=== PATIENT | female | born 1975 | race Caucasian/White ===

== ENCOUNTER 2021-12-30 12:35 | Inpatient (IN) ==
[2021-12-30 13:45] LABS: Mean Corpuscular Volume 89.9 fL (83.0-100.0)
[2021-12-30 13:47] LABS: Hematocrit 33.9 % (35.3-44.9); Hemoglobin 11.7 g/dL (11.5-15.4); Immature Platelets 9.3 % (1.1-6.1); Mean Corpuscular HGB Conc 34.5 g/dL (31.6-35.5); Mean Platelet Volume 11.6 fL (9.4-12.4); Red Blood Count 3.77 M/mcL (3.82-4.97); White Blood Count 11.2 K/mcL (4.3-11.1)
[2021-12-30 14:08] LABS: Calcium 6.8 mg/dL (8.6-10.3); Potassium 3.2 mEq/L (3.5-5.1)
[2021-12-30 14:53] LABS: Platelet Count 59 K/mcL (140-400)
[2021-12-30 15:07] LABS: Eosinophils # 0.1 K/mcL (0.0-0.6); Lymphocytes # 0.9 K/mcL (0.6-4.6); Monocytes # 0.1 K/mcL (0.0-1.3); Platelet Estimate Decreased (Normal)
[2021-12-30 15:30] LABS: Bilirubin,Urine Negative (Negative); Blood,Urine Large (Negative); Clarity,Urine Clear (Clear); Color,Urine Yellow (Yellow); Glucose,Urine (UA) Normal (Normal); Ketones,Urine Negative (Negative); Leukocyte Esterase,Urine Small (Negative); Nitrite,Urine Negative (Negative); Protein,Urine 100 mg/dL (Neg-Trace); Urobilinogen,Urine Normal (Normal)
[2021-12-30 15:31] LABS: Bacteria,Urine Few per hpf (None-Few); RBC,Urine 0-3 per hpf (0-3); Squamous Epithelial Cell,Urine Few per hpf (None-Few); WBC,Urine 30-50 per hpf (0-3)
[2021-12-30] MEDS ORDERED: Piperacillin/Tazobactam 3.375 GM in 0.9 % Sodium Chloride Mini Bag 100 ML IVPB ONE (15:43)
[2021-12-30] MEDS ORDERED: Vancomycin 1,250 MG/262.5 ML IV.SOLN IVPB ONE (15:43)
[2021-12-30] MEDS: 0.9 % Sodium Chloride 1,000 ML IVC SCH ×2 (16:15→17:19)
[2021-12-30] MEDS ORDERED: Ondansetron 4 MG/2 ML VIAL IVP ONE (16:57)
[2021-12-30] MEDS ORDERED: *HR* HYDROmorphone (PF) 1 MG/ML SYRINGE IVP ONE (16:57)
[2021-12-30] MEDS ORDERED: *HR* HYDROmorphone (PF) 1 MG/ML SYRINGE IM ONE (16:57)
[2021-12-30 17:02] LABS: Hematocrit 33.3 % (35.3-44.9); Hemoglobin 11.3 g/dL (11.5-15.4); Immature Platelets 9.7 % (1.1-6.1); Mean Corpuscular HGB Conc 33.9 g/dL (31.6-35.5); Mean Corpuscular Volume 91.2 fL (83.0-100.0); Red Blood Count 3.65 M/mcL (3.82-4.97); White Blood Count 11.6 K/mcL (4.3-11.1)
[2021-12-30 17:11] LABS: Platelet Count 60 K/mcL (140-400)
[2021-12-30 17:22] LABS: Albumin 3.2 g/dL (3.5-5.7); Albumin/Globulin Ratio 1.1 (1.1-2.2); Bilirubin,Direct 0.1 mg/dL (0.0-0.2); Bilirubin,Indirect 0.3 mg/dL (0.0-1.0); Bilirubin,Total 0.4 mg/dL (0.3-1.0); Calcium 6.7 mg/dL (8.6-10.3); Magnesium 2.4 mg/dL (1.6-2.6); Phosphorous 3.5 mg/dL (2.7-4.5); Potassium 3.1 mEq/L (3.5-5.1); Total Protein 6.2 g/dL (6.4-8.9); Troponin I 0.05 ng/mL (< 0.04)
[2021-12-30 17:42] LABS: Lymphocytes # 0.2 K/mcL (0.6-4.6); Monocytes # 0.2 K/mcL (0.0-1.3); Neutrophils # 11.1 K/mcL (1.6-8.9)
[2021-12-30 17:43] LABS: Platelet Estimate Decreased (Normal)
[2021-12-30] MEDS ORDERED: Iopamidol - 300 50 ML VIAL ONE (17:52)
[2021-12-30 18:01] LABS: Bacteria,Urine Few per hpf (None-Few); Bilirubin,Urine Negative (Negative); Blood,Urine Large (Negative); Clarity,Urine Clear (Clear); Color,Urine Light-Yellow (Yellow); Glucose,Urine (UA) Normal (Normal); Ketones,Urine Negative (Negative); Leukocyte Esterase,Urine Large (Negative); Mucus,Urine Few per lpf (None-Few); Nitrite,Urine Negative (Negative); PH,Urine 6.5 pH Units (5.0-8.0); Protein,Urine 100 mg/dL (Neg-Trace); Specific Gravity,Urine 1.014 (1.010-1.025); Squamous Epithelial Cell,Urine Few per hpf (None-Few); Urobilinogen,Urine Normal (Normal); WBC,Urine 15-30 per hpf (0-3)
[2021-12-30] MEDS ORDERED: Promethazine 6.25 MG in Water for inj. (sterile) 20 ML IVPB PRN (18:09)
[2021-12-30] MEDS ORDERED: *HR* HYDROmorphone PF 0.5 MG/0.5 ML SYRINGE IVP PRN (18:09)
[2021-12-30] MEDS ORDERED: Ondansetron 4 MG/2 ML VIAL IVP PRN ×3 (18:09→21:00)
[2021-12-30] MEDS ORDERED: *HR* OxyCODONE Immed Rel 5 MG TABLET PO PRN (18:09)
[2021-12-30] MEDS ORDERED: *HR* FentaNYL (PF) 100 MCG/2 ML VIAL ONE (18:13)
[2021-12-30] MEDS ORDERED: Lidocaine -MPF 2% 5 ML VIAL ONE (18:13)
[2021-12-30] MEDS ORDERED: *HR* Propofol 200 MG/20 ML VIAL IVP ONE (18:14)
[2021-12-30] MEDS ORDERED: Naloxone 0.4 MG/ML INJ IVP PRN ×2 (18:16→21:00)
[2021-12-30] MEDS ORDERED: Melatonin 3 MG TABLET PO PRN ×2 (18:16→21:00)
[2021-12-30] MEDS ORDERED: 0.9 % Sodium Chloride 1,000 ML IVC ONE ×2 (18:19→21:00)
[2021-12-30] MEDS ORDERED: D5% in Water 1,000 ML IVC PRN ×2 (18:23→21:00)
[2021-12-30] MEDS ORDERED: *HR* Dextrose 50 % in Water (Syg) 50 ML SYRINGE IVP PRN ×2 (18:23→21:00)
[2021-12-30] MEDS ORDERED: Dextrose Gel 15 GM/37.5 ML TUBE PO PRN ×4 (18:23→21:00)
[2021-12-30] MEDS ORDERED: Insulin LISPRO 300 UNITS/3 ML VIAL SUBQ SCH (18:30)
[2021-12-30] MEDS ORDERED: Albuterol 2.5 MG/3 ML NEBULIZER IH ONE (19:48)
[2021-12-30] MEDS ORDERED: *HR* Labetalol 20 MG/4 ML SYRINGE IVP PRN (20:07)
[2021-12-30] MEDS ORDERED: *HR* Labetalol 20 MG/4 ML SYRINGE IVP ONE (20:10)
[2021-12-30] MEDS ORDERED: Ringers Solution, Lactated 1,000 ML ONE (20:20)
[2021-12-30] MEDS ORDERED: Acetaminophen IV 1,000 MG/100 ML BAG IVPB ONE ×2 (20:40)
[2021-12-30] MEDS ORDERED: Calcium Gluconate 1gm/50mL 1 GM/50 ML BAG IVPB ONE (21:00)
[2021-12-30] MEDS: Piperacillin/Tazobactam 3.375 GM in 0.9 % Sodium Chloride Mini Bag 100 ML IVPB SCH (23:39)
[2021-12-31] MEDS ORDERED: Piperacillin/Tazobactam 3.375 GM in 0.9 % Sodium Chloride Mini Bag 100 ML IVPB SCH
[2021-12-31] MEDS: Acetaminophen/Butalbital/CaffeineTABLET PO PRN ×2 (01:34→15:53)
[2021-12-31 04:34] LABS: Hematocrit 30.6 % (35.3-44.9); Hemoglobin 10.4 g/dL (11.5-15.4); Mean Corpuscular Volume 91.3 fL (83.0-100.0); Red Blood Count 3.35 M/mcL (3.82-4.97)
[2021-12-31 04:36] LABS: Immature Platelets 7.1 % (1.1-6.1); Monocytes # 0.2 K/mcL (0.0-1.3); Red Cell Distribution Width 14.4 % (11.5-14.5); White Blood Count 11.4 K/mcL (4.3-11.1)
[2021-12-31 04:37] LABS: Platelet Count 56 K/mcL (140-400)
[2021-12-31 04:51] LABS: Calcium 6.2 mg/dL (8.6-10.3); Magnesium 2.1 mg/dL (1.6-2.6); Phosphorous 3.2 mg/dL (2.7-4.5); Potassium 3.6 mEq/L (3.5-5.1)
[2021-12-31 04:52] LABS: INR 1.2; Prothrombin Time 13.5 Seconds (9.4-12.1)
[2021-12-31 05:15] LABS: Neutrophils # 11.2 K/mcL (1.6-8.9); Platelet Estimate Decreased (Normal)
[2021-12-31] MEDS: Piperacillin/Tazobactam 3.375 GM in 0.9 % Sodium Chloride Mini Bag 100 ML IVPB SCH ×2 (07:37→15:54)
[2021-12-31] MEDS: Insulin LISPRO 300 UNITS/3 ML VIAL SUBQ SCH ×3 (08:56→17:22)
[2021-12-31 09:42] LABS: Estimated Average Glucose 166 mg/dl; Hemoglobin A1C 7.4 %
[2021-12-31] MEDS: Calcium Gluconate 1gm/50mL 1 GM/50 ML BAG IVPB SCH ×2 (12:31→12:37)
[2021-12-31] MEDS: Calcium Gluconate 1gm/50mL 1 GM/50 ML BAG IVPB ONE (13:35)
[2021-12-31] MEDS: 0.9 % Sodium Chloride 1,000 ML IVC SCH (22:04)
[2022-01-01] MEDS: Piperacillin/Tazobactam 3.375 GM in 0.9 % Sodium Chloride Mini Bag 100 ML IVPB SCH ×3 (00:06→16:07)
[2022-01-01 03:51] LABS: Basophils % 0.1 %; Eosinophils % 0.1 %; Hematocrit 31.4 % (35.3-44.9); Mean Corpuscular Volume 87.5 fL (83.0-100.0); Red Blood Count 3.59 M/mcL (3.82-4.97)
[2022-01-01 03:53] LABS: Hemoglobin 11.1 g/dL (11.5-15.4); Immature Granulocytes % 1.3 % (0-4); Immature Platelets 4.7 % (1.1-6.1); Lymphocytes # 1.1 K/mcL (0.6-4.6); Lymphocytes % 11.5 %; Mean Corpuscular HGB Conc 35.4 g/dL (31.6-35.5); Mean Corpuscular Hemoglobin 30.9 pg (28.0-33.3); Mean Platelet Volume 10.9 fL (9.4-12.4); Monocytes # 0.3 K/mcL (0.0-1.3); Monocytes % 3.1 %; Platelet Count 100 K/mcL (140-400); Red Cell Distribution Width 14.2 % (11.5-14.5); Segmented Neutrophils % 83.9 %; White Blood Count 9.5 K/mcL (4.3-11.1)
[2022-01-01 04:10] LABS: Calcium 7.1 mg/dL (8.6-10.3); Potassium 3.4 mEq/L (3.5-5.1)
[2022-01-01] MEDS: Calcium Gluconate 1gm/50mL 1 GM/50 ML BAG IVPB SCH (07:44)
[2022-01-01] MEDS: 0.9 % Sodium Chloride 1,000 ML IVC SCH (07:49)
[2022-01-01] MEDS: Insulin LISPRO 300 UNITS/3 ML VIAL SUBQ SCH ×3 (07:50→17:49)
[2022-01-01] MEDS ORDERED: Iopamidol - 370 500 ML MLS IVP ONE ×3 (08:52→10:27)
[2022-01-01] MEDS ORDERED: 0.9 % Sodium Chloride 500 ML IV.SOLN IVC PRN (08:54)
[2022-01-01] MEDS: tiZANidine 4 MG TABLET PO SCH ×3 (11:05→20:46)
[2022-01-01] MEDS: Gabapentin 400 MG CAPSULE PO SCH ×3 (11:05→20:47)
[2022-01-01] MEDS: Calcium Gluconate 1gm/50mL 1 GM/50 ML BAG IVPB ONE (11:07)
[2022-01-01] MEDS: Patient Taking Own Medication 1 EACH PO SCH (11:10)
[2022-01-01] MEDS: traZODone 50 MG TABLET PO SCH (20:46)
[2022-01-01] MEDS ORDERED: lamoTRIgine 100 MG TABLET PO SCH (21:00)
[2022-01-02] MEDS: Piperacillin/Tazobactam 3.375 GM in 0.9 % Sodium Chloride Mini Bag 100 ML IVPB SCH ×4 (00:45→23:19)
[2022-01-02 02:57] LABS: Basophils % 0.2 %; Eosinophils % 0.1 %; Hematocrit 31.3 % (35.3-44.9); Hemoglobin 10.8 g/dL (11.5-15.4); Immature Granulocytes % 1.9 % (0-4); Immature Platelets 3.4 % (1.1-6.1); Lymphocytes # 1.8 K/mcL (0.6-4.6); Lymphocytes % 16.2 %; Mean Corpuscular HGB Conc 34.5 g/dL (31.6-35.5); Mean Corpuscular Hemoglobin 30.7 pg (28.0-33.3); Mean Corpuscular Volume 88.9 fL (83.0-100.0); Mean Platelet Volume 10.1 fL (9.4-12.4); Monocytes # 0.6 K/mcL (0.0-1.3); Monocytes % 5.9 %; Neutrophils # 8.2 K/mcL (1.6-8.9); Platelet Count 107 K/mcL (140-400); Red Blood Count 3.52 M/mcL (3.82-4.97); Red Cell Distribution Width 14.6 % (11.5-14.5); Segmented Neutrophils % 75.7 %; White Blood Count 10.8 K/mcL (4.3-11.1)
[2022-01-02 03:25] LABS: Calcium 7.2 mg/dL (8.6-10.3); Potassium 2.8 mEq/L (3.5-5.1)
[2022-01-02] MEDS: Calcium Gluconate 1gm/50mL 1 GM/50 ML BAG IVPB SCH ×2 (07:11→11:22)
[2022-01-02] MEDS: Insulin LISPRO 300 UNITS/3 ML VIAL SUBQ SCH ×3 (08:31→17:15)
[2022-01-02] MEDS: tiZANidine 4 MG TABLET PO SCH ×3 (08:32→20:37)
[2022-01-02] MEDS: Gabapentin 400 MG CAPSULE PO SCH ×3 (08:33→20:36)
[2022-01-02] MEDS: Patient Taking Own Medication 1 EACH PO SCH (10:11)
[2022-01-02 11:24] LABS: Magnesium 1.5 mg/dL (1.6-2.6)
[2022-01-02] MEDS: Magnesium Oxide 400 MG TABLET PO SCH (17:15)
[2022-01-02] MEDS: lamoTRIgine 100 MG TABLET PO SCH (20:36)
[2022-01-02] MEDS: traZODone 50 MG TABLET PO SCH (20:37)
[2022-01-03] MEDS: lamoTRIgine 100 MG TABLET PO SCH ×2 (10:01→21:00)
[2022-01-03] MEDS: Gabapentin 400 MG CAPSULE PO SCH ×3 (10:01→20:59)
[2022-01-03] MEDS: tiZANidine 4 MG TABLET PO SCH ×3 (10:01→21:00)
[2022-01-03] MEDS: Magnesium Oxide 400 MG TABLET PO SCH (10:01)
[2022-01-03] MEDS: Insulin LISPRO 300 UNITS/3 ML VIAL SUBQ SCH ×3 (10:02→15:54)
[2022-01-03] MEDS: Piperacillin/Tazobactam 3.375 GM in 0.9 % Sodium Chloride Mini Bag 100 ML IVPB SCH ×2 (10:06→15:53)
[2022-01-03 11:54] LABS: Hematocrit 29.4 % (35.3-44.9); Hemoglobin 10.1 g/dL (11.5-15.4); Mean Corpuscular HGB Conc 34.4 g/dL (31.6-35.5); Mean Corpuscular Hemoglobin 31.5 pg (28.0-33.3); Mean Corpuscular Volume 91.6 fL (83.0-100.0); Mean Platelet Volume 10.4 fL (9.4-12.4); Platelet Count 116 K/mcL (140-400); Red Blood Count 3.21 M/mcL (3.82-4.97); Red Cell Distribution Width 14.7 % (11.5-14.5); White Blood Count 15.8 K/mcL (4.3-11.1)
[2022-01-03 12:18] LABS: Calcium 7.5 mg/dL (8.6-10.3); Potassium 2.8 mEq/L (3.5-5.1)
[2022-01-03 12:29] LABS: Platelet Estimate Slight Decrease (Normal)
[2022-01-03 12:30] LABS: Lymphocytes # 4.3 K/mcL (0.6-4.6); Monocytes # 1.3 K/mcL (0.0-1.3); Neutrophils # 10.3 K/mcL (1.6-8.9)
[2022-01-03 13:46] LABS: Adenovirus Not Detected (Not Detect); Bordetella Pertussis Not Detected (Not Detect); Chlamydophila pneumoniae Not Detected (Not Detect); Coronavirus 229E Not Detected (Not Detect); Coronavirus HKU1 Not Detected (Not Detect); Coronavirus NL63 Not Detected (Not Detect); Coronavirus OC43 Not Detected (Not Detect); Human Metapneumovirus Not Detected (Not Detect); Human Rhinovirus/Enterovirus Not Detected (Not Detect); Influenza A Subtype 2009 H1 Not Detected (Not Detect); Influenza B Not Detected (Not Detect); Mycoplasma pneumoniae Not Detected (Not Detect); Parainfluenza Virus 1 Not Detected (Not Detect); Parainfluenza Virus 2 Not Detected (Not Detect); Parainfluenza Virus 3 Not Detected (Not Detect); Parainfluenza Virus 4 Not Detected (Not Detect); Respiratory Syncytial Virus Not Detected (Not Detect); SARS-CoV-2 Not Detected (Not Detect)
[2022-01-03] MEDS ORDERED: Calcium Gluconate 1gm/50mL 1 GM/50 ML BAG IVPB SCH (15:00)
[2022-01-03] MEDS: Acetaminophen/Butalbital/CaffeineTABLET PO PRN (15:52)
[2022-01-03] MEDS: Ampicillin/Sulbactam 3,000 MG in 0.9 % Sodium Chloride Mini Bag 100 ML IVPB SCH ×2 (18:55→23:32)
[2022-01-03] MEDS: Calcium Gluconate 1gm/50mL 1 GM/50 ML BAG IVPB SCH (18:55)
[2022-01-03] MEDS: traZODone 50 MG TABLET PO SCH (20:59)
[2022-01-04 06:08] LABS: Basophils % 0.2 %; Eosinophils % 0.2 %; Hematocrit 28.9 % (35.3-44.9); Hemoglobin 9.8 g/dL (11.5-15.4); Immature Granulocytes % 6.1 % (0-4); Lymphocytes # 2.3 K/mcL (0.6-4.6); Mean Corpuscular HGB Conc 33.9 g/dL (31.6-35.5); Mean Corpuscular Hemoglobin 31.1 pg (28.0-33.3); Mean Corpuscular Volume 91.7 fL (83.0-100.0); Mean Platelet Volume 10.4 fL (9.4-12.4); Monocytes # 0.7 K/mcL (0.0-1.3); Platelet Count 172 K/mcL (140-400); Red Blood Count 3.15 M/mcL (3.82-4.97); Red Cell Distribution Width 14.8 % (11.5-14.5); Segmented Neutrophils % 72.5 %
[2022-01-04 06:09] LABS: Neutrophils # 10.4 K/mcL (1.6-8.9); White Blood Count 14.3 K/mcL (4.3-11.1)
[2022-01-04 06:25] LABS: Calcium 7.5 mg/dL (8.6-10.3); Magnesium 1.8 mg/dL (1.6-2.6); Potassium 3.4 mEq/L (3.5-5.1)
[2022-01-04] MEDS ORDERED: Lidocaine HCL 4 ML Topical Solution (Laryng-O-Jet Kit Sterile Pak) TP ONE (07:22)
[2022-01-04] MEDS ORDERED: *HR* Propofol 200 MG/20 ML VIAL IVP ONE (07:25)
[2022-01-04] MEDS ORDERED: *HR* Rocuronium Bromide 50 MG/5 ML VIAL ONE ×2 (07:26→08:52)
[2022-01-04] MEDS ORDERED: Lidocaine -MPF 2% 5 ML VIAL ONE (07:26)
[2022-01-04] MEDS ORDERED: Ondansetron 4 MG/2 ML VIAL ONE (07:26)
[2022-01-04] MEDS ORDERED: *HR* FentaNYL (PF) 100 MCG/2 ML VIAL ONE (07:26)
[2022-01-04] MEDS ORDERED: *HR* Succinylcholine 200 MG/10 ML VIAL IVP ONE (07:26)
[2022-01-04] MEDS ORDERED: *HR* Midazolam HCl 2 MG/2 ML VIAL ONE (07:26)
[2022-01-04] MEDS ORDERED: *HR* FentaNYL (PF) 100 MCG/2 ML VIAL IVP PRN (07:27)
[2022-01-04] MEDS ORDERED: Ondansetron 4 MG/2 ML VIAL IVP PRN ×2 (07:27→12:53)
[2022-01-04] MEDS ORDERED: Promethazine 6.25 MG in Water for inj. (sterile) 20 ML IVPB PRN (07:27)
[2022-01-04] MEDS ORDERED: Ipratropium/Albuterol Neb 3 ML ONE (07:39)
[2022-01-04] MEDS: Insulin LISPRO 300 UNITS/3 ML VIAL SUBQ SCH ×3 (07:47→23:12)
[2022-01-04] MEDS: tiZANidine 4 MG TABLET PO SCH ×3 (07:48→19:53)
[2022-01-04] MEDS: Gabapentin 400 MG CAPSULE PO SCH ×3 (07:48→19:52)
[2022-01-04] MEDS: Magnesium Oxide 400 MG TABLET PO SCH (07:48)
[2022-01-04] MEDS: lamoTRIgine 100 MG TABLET PO SCH ×2 (07:48→19:53)
[2022-01-04] MEDS ORDERED: Ketamine HCL *QUVA* 50mg (1mL) SYRINGE ONE (08:29)
[2022-01-04] MEDS: Ampicillin/Sulbactam 3,000 MG in 0.9 % Sodium Chloride Mini Bag 100 ML IVPB SCH ×3 (08:33→23:11)
[2022-01-04] MEDS ORDERED: *HR* HYDROMORPHONE 2 MG/ML VIAL ONE (09:22)
[2022-01-04] MEDS ORDERED: Sugammadex Sodium 200 MG/2 ML VIAL IV ONE (10:33)
[2022-01-04] MEDS: *HR* HYDROmorphone PF 0.5 MG/0.5 ML SYRINGE IVP PRN ×2 (11:28→11:50)
[2022-01-04] MEDS ORDERED: Acetaminophen/Butalbital/CaffeineTABLET PO PRN (12:53)
[2022-01-04] MEDS ORDERED: D5% in Water 1,000 ML IVC PRN ×2 (12:53→22:56)
[2022-01-04] MEDS ORDERED: Melatonin 3 MG TABLET PO PRN (12:53)
[2022-01-04] MEDS ORDERED: *HR* Dextrose 50 % in Water (Syg) 50 ML SYRINGE IVP PRN ×2 (12:53→22:56)
[2022-01-04] MEDS ORDERED: Naloxone 0.4 MG/ML INJ IVP PRN (12:53)
[2022-01-04] MEDS ORDERED: 0.9 % Sodium Chloride 500 ML IV.SOLN IVC PRN (12:53)
[2022-01-04] MEDS ORDERED: Dextrose Gel 15 GM/37.5 ML TUBE PO PRN ×4 (12:53→22:56)
[2022-01-04] MEDS: traZODone 50 MG TABLET PO SCH (19:54)
[2022-01-04] MEDS ORDERED: Mag Hydrox/Al Hydrox/Simeth 30 ML UDC PO ONE (20:04)
[2022-01-04] MEDS ORDERED: Acetaminophen 325 MG TABLET PO ONE (23:05)
[2022-01-05] MEDS ORDERED: 0.9 % Sodium Chloride 1,000 ML IVC ONE (01:23)
[2022-01-05 03:39] LABS: Hemoglobin 8.6 g/dL (11.5-15.4); Mean Corpuscular HGB Conc 31.9 g/dL (31.6-35.5); Mean Corpuscular Hemoglobin 30.7 pg (28.0-33.3); Mean Corpuscular Volume 96.4 fL (83.0-100.0); Mean Platelet Volume 10.8 fL (9.4-12.4); Platelet Count 220 K/mcL (140-400); White Blood Count 15.3 K/mcL (4.3-11.1)
[2022-01-05 03:40] LABS: Hematocrit 26.5 % (35.3-44.9); Hemoglobin 8.6 g/dL (11.5-15.4); Mean Corpuscular HGB Conc 32.5 g/dL (31.6-35.5); Mean Corpuscular Hemoglobin 31.2 pg (28.0-33.3); Platelet Count 213 K/mcL (140-400); Red Blood Count 2.76 M/mcL (3.82-4.97); Red Cell Distribution Width 15.2 % (11.5-14.5); White Blood Count 15.1 K/mcL (4.3-11.1)
[2022-01-05 03:55] LABS: Calcium 6.6 mg/dL (8.6-10.3); Potassium 4.1 mEq/L (3.5-5.1)
[2022-01-05 04:25] LABS: Lymphocytes # 3.6 K/mcL (0.6-4.6); Monocytes # 0.3 K/mcL (0.0-1.3); Neutrophils # 11.2 K/mcL (1.6-8.9)
[2022-01-05 04:26] LABS: Platelet Estimate Normal (Normal)
[2022-01-05] MEDS: Ampicillin/Sulbactam 3,000 MG in 0.9 % Sodium Chloride Mini Bag 100 ML IVPB SCH ×3 (06:16→16:55)
[2022-01-05] MEDS: *HR* HYDROmorphone (PF) 1 MG/ML SYRINGE IVP PRN ×4 (08:12→21:47)
[2022-01-05] MEDS: Gabapentin 400 MG CAPSULE PO SCH ×3 (08:14→21:51)
[2022-01-05] MEDS: tiZANidine 4 MG TABLET PO SCH ×3 (08:15→21:51)
[2022-01-05] MEDS: lamoTRIgine 100 MG TABLET PO SCH ×2 (08:15→21:51)
[2022-01-05] MEDS: Magnesium Oxide 400 MG TABLET PO SCH (08:15)
[2022-01-05] MEDS: Insulin LISPRO 300 UNITS/3 ML VIAL SUBQ SCH ×3 (08:52→16:56)
[2022-01-05] MEDS ORDERED: *HR* Heparin 5,000 UNIT/ML VIAL SQ SCH (10:45)
[2022-01-05] MEDS: 0.9 % Sodium Chloride 1,000 ML IVC SCH ×2 (12:27→21:51)
[2022-01-05] MEDS: *HR* Heparin 5,000 UNIT/ML VIAL SQ SCH (16:56)
[2022-01-05] MEDS: traZODone 50 MG TABLET PO SCH (21:49)
[2022-01-06] MEDS: Ampicillin/Sulbactam 3,000 MG in 0.9 % Sodium Chloride Mini Bag 100 ML IVPB SCH ×3 (00:13→12:29)
[2022-01-06] MEDS: Insulin LISPRO 300 UNITS/3 ML VIAL SUBQ SCH ×5 (00:17→20:49)
[2022-01-06] MEDS: *HR* HYDROmorphone (PF) 1 MG/ML SYRINGE IVP PRN ×5 (02:25→19:48)
[2022-01-06 03:12] LABS: Basophils # 0.1 K/mcL (0.0-0.2); Basophils % 0.3 %; Eosinophils % 0.2 %; Hematocrit 23.8 % (35.3-44.9); Hemoglobin 7.8 g/dL (11.5-15.4); Immature Granulocytes % 4.6 % (0-4); Lymphocytes % 18.7 %; Mean Corpuscular HGB Conc 32.8 g/dL (31.6-35.5); Mean Corpuscular Volume 94.4 fL (83.0-100.0); Mean Platelet Volume 10.6 fL (9.4-12.4); Monocytes # 0.7 K/mcL (0.0-1.3); Monocytes % 4.3 %; Neutrophils # 12.1 K/mcL (1.6-8.9); Platelet Count 321 K/mcL (140-400); Red Blood Count 2.52 M/mcL (3.82-4.97); Red Cell Distribution Width 15.1 % (11.5-14.5); Segmented Neutrophils % 71.9 %; White Blood Count 16.8 K/mcL (4.3-11.1)
[2022-01-06 03:16] LABS: Lymphocytes # 3.1 K/mcL (0.6-4.6)
[2022-01-06 03:32] LABS: BUN/Creatinine Ratio 9 (6-26); Blood Urea Nitrogen 7 mg/dL (6-20); Calcium 6.6 mg/dL (8.6-10.3); Carbon Dioxide 20 mEq/L (23-29); Chloride 107 mEq/L (98-107); Glucose 169 mg/dL (70-105); Osmolality,Calculated 278 (280-300); Potassium 3.9 mEq/L (3.5-5.1); Sodium 133 mEq/L (136-145)
[2022-01-06 04:43] LABS: Platelet Estimate Normal (Normal); Toxic Granulation Present (Not Present)
[2022-01-06] MEDS: *HR* Heparin 5,000 UNIT/ML VIAL SQ SCH ×2 (06:36→17:12)
[2022-01-06] MEDS: tiZANidine 4 MG TABLET PO SCH ×3 (08:28→20:48)
[2022-01-06] MEDS: Gabapentin 400 MG CAPSULE PO SCH ×3 (08:28→20:47)
[2022-01-06] MEDS: Magnesium Oxide 400 MG TABLET PO SCH (08:28)
[2022-01-06] MEDS: lamoTRIgine 100 MG TABLET PO SCH ×2 (08:28→20:48)
[2022-01-06] MEDS: 0.9 % Sodium Chloride 1,000 ML IVC SCH (08:29)
[2022-01-06] MEDS ORDERED: Calcium Gluconate 1gm/50mL 1 GM/50 ML BAG IVPB PRN (08:55)
[2022-01-06] MEDS ORDERED: Calcium Gluconate 1gm/50mL 1 GM/50 ML BAG IVPB ONE (15:12)
[2022-01-06] MEDS: traZODone 50 MG TABLET PO SCH (20:47)
[2022-01-07] MEDS: *HR* HYDROmorphone (PF) 1 MG/ML SYRINGE IVP PRN ×2 (02:14→06:26)
[2022-01-07 03:40] LABS: Basophils # 0.1 K/mcL (0.0-0.2); Basophils % 0.3 %; Eosinophils # 0.1 K/mcL (0.0-0.6); Eosinophils % 0.4 %; Hematocrit 23.6 % (35.3-44.9); Hemoglobin 7.6 g/dL (11.5-15.4); Immature Granulocytes % 4.2 % (0-4); Lymphocytes % 18.1 %; Mean Corpuscular HGB Conc 32.2 g/dL (31.6-35.5); Mean Corpuscular Hemoglobin 31.1 pg (28.0-33.3); Mean Corpuscular Volume 96.7 fL (83.0-100.0); Mean Platelet Volume 10.4 fL (9.4-12.4); Monocytes % 5.8 %; Neutrophils # 11.6 K/mcL (1.6-8.9); Platelet Count 414 K/mcL (140-400); Red Blood Count 2.44 M/mcL (3.82-4.97); Red Cell Distribution Width 14.9 % (11.5-14.5); Segmented Neutrophils % 71.2 %; White Blood Count 16.3 K/mcL (4.3-11.1)
[2022-01-07 03:57] LABS: BUN/Creatinine Ratio 8 (6-26); Blood Urea Nitrogen 6 mg/dL (6-20); Carbon Dioxide 20 mEq/L (23-29); Chloride 105 mEq/L (98-107); Glucose 217 mg/dL (70-105); Osmolality,Calculated 278 (280-300); Potassium 3.8 mEq/L (3.5-5.1); Sodium 132 mEq/L (136-145)
[2022-01-07 04:05] LABS: Hypochromasia Present (Not Present); Platelet Estimate Normal (Normal); Reactive Lymphocytes Present (Not Present); Stomatocytes 1+ (Not Present)
[2022-01-07] MEDS: *HR* Heparin 5,000 UNIT/ML VIAL SQ SCH (06:27)
[2022-01-07 06:57] VITALS: O2SAT 90
[2022-01-07] MEDS: Calcium Gluconate 1gm/50mL 1 GM/50 ML BAG IVPB SCH ×2 (08:37→10:00)
[2022-01-07] MEDS: tiZANidine 4 MG TABLET PO SCH (08:38)
[2022-01-07] MEDS: Gabapentin 400 MG CAPSULE PO SCH (08:38)
[2022-01-07] MEDS: lamoTRIgine 100 MG TABLET PO SCH (08:38)
[2022-01-07] MEDS: Magnesium Oxide 400 MG TABLET PO SCH (08:38)
[2022-01-07] MEDS: Insulin LISPRO 300 UNITS/3 ML VIAL SUBQ SCH ×2 (08:39→13:21)
[2022-01-07 10:27] VITALS: BP 90/56; PULSE 90; TEMP 98.3
[2022-01-07] MEDS ORDERED: Insulin DETEMIR 100 UNIT/ML X5UNITS SUBQ SCH (21:00)
== END 2022-01-07 13:47 | disposition home health service (06) | DRG 710 ==
LOC: EMEROOARM 12:35 → SUATTDRO 18:16 → 3ANU 18:16
PROVIDERS: ADMIT Internal Medicine; ATTEND Internal Medicine